=== PATIENT | male | born 1985 | race Caucasian/White ===

== ENCOUNTER 2022-10-21 20:14 | Emergency (ER) | payer OTHER ==
--- NOTE | 2022-10-21 21:31 | RAD REPORT ---
EXAM DESCRIPTION: RAD - Chest Single View - 10/21/2022 9:22 pm CLINICAL HISTORY: PALPITATIONS Chest pain. COMPARISON: No comparisons FINDINGS: Portable technique limits examination quality. The lungs are grossly clear. The heart is normal in size. No displaced fractures. IMPRESSION: No acute intrathoracic process suspected.
--- NOTE | 2022-10-21 21:43 | ER ---
Nurse's Notes [facility] Name: Santiago Cotter Age: 37 yrs Sex: Male : 1985 Arrival Date: 10/21/2022 Time: 20:17 Bed 26 Private MD: Diagnosis: Palpitations Presentation: 10/21 20:30 Chief complaint: Patient states: STATES HE HAS HAD CP FOR 1 YR SO HE WOULD LIKE A CXR j TONIGHT. CURRENTLY NOT HAVING ANY CHEST PAIN. STATES HE CAME TONIGHT BECAUSE HE HAS HAD INTERMITTENT FLUTTERING IN HIS LUQ. Coronavirus screen: Vaccine status: Patient reports receiving the 2nd dose of the covid vaccine. At this time, the client does not indicate any symptoms associated with coronavirus-19. Ebola Screen: No symptoms or risks identified at this time. Initial Sepsis Screen: Does the patient meet any 2 criteria? No. Patient's initial sepsis screen is negative. Does the patient have a suspected source of infection? No. Patient's initial sepsis screen is negative. Risk Assessment: Do you want to hurt yourself or someone else? Patient reports no desire to harm self or others. Onset of symptoms is unknown. 20:30 Method Of Arrival: Ambulatory [facility] 20:30 Acuity: [place] 4 jj7 Triage Assessment: 20:30 General: Appears in no apparent distress. comfortable, slender, Behavior is calm, jj7 cooperative, appropriate for age. Pain: Denies pain. Cardiovascular: No deficits noted. GI: No deficits noted. Historical: - Allergies: 20:40 No Known Allergies; jj7 - PMHx: 20:40 None; jj7 - PSHx: 20:40 None; jj7 - Immunization history:: Client reports receiving the 2nd dose of the Covid vaccine, Flu vaccine is not up to date. - Social history:: Smoking status: Patient denies any tobacco usage or history of. Patient/guardian denies using alcohol, IV drugs, tobacco products. Screenin:41 [facility] ED Fall Risk Assessment (Adult) History of falling in the last 3 months, jj7 including since admission No falls in past 3 months (0 pts) Confusion or Disorientation No (0 pts) Intoxicated or Sedated No (0 pts) Impaired Gait No (0 pts) Mobility Assist Device Used No (0 pt) Altered Elimination No (0 pt) Score/Fall Risk Level 0 - 2 = Low Risk. Abuse screen: Denies threats or abuse. Nutritional screening: No deficits noted. Tuberculosis screening: No symptoms or risk factors identified. Assessment: 20:41 Reassessment: SEE TRIAGE ASSESSMENT. Pain: Denies pain. jj7 21:50 Pain: Pain began. jj7 21:50 Pain: jj7 Vital Signs: 20:30 BP 141 / 87; Pulse 70; Resp 17; Temp 98.1(O); Pulse Ox 100% ; Weight 99.79 kg; Height 6 jj7 ft. 2 in. (187.96 cm); Pain 0/10; 21:48 BP 130 / 87; Pulse 67; Resp 17; Pulse Ox 100% ; Pain 0/10; jj7 20:30 Body Mass Index 28.25 (99.79 kg, 187.96 cm) jj7 ED Course: 20:17 Patient arrived in ED. ja2 20:29 Pawel Grissom PA is PHCP. cp 20:29 Darrion Salazar MD is Attending Physician. cp 20:30 Arm band placed on right wrist. Patient placed in an exam room, on a stretcher. jj7 20:31 Navid Gates RN is Primary Nurse. jj7 20:40 Triage completed. jj7 20:41 Patient has correct armband on for positive identification. Call light in reach. Client jj7 placed on continuous cardiac and pulse oximetry monitoring. NIBP monitoring applied. 20:41 No provider procedures requiring assistance completed. Patient maintains SpO2 jj7 saturation greater than 95% on room air. 21:23 XRAY Chest (1 view) In Process Unspecified. EDMS 21:50 Patient did not have IV access during this emergency room visit. jj7 Administered Medications: No medications were administered Medication: 20:41 VIS not applicable for this client. jj7 Outcome: 21:43 Discharge ordered by . cp 21:49 Discharged to home via ambulance. jj7 21:49 Condition: good 21:49 Discharge instructions given to patient. 21:49 Instructed on discharge instructions, Demonstrated understanding of instructions. 21:50 Patient left the ED. jj7 Signatures: Dispatcher [employer] EDMT Pawel Grissom PA PA cp Alexander, Jessica ja2 Navid Gates RN RN jj7
--- NOTE | 2022-10-21 21:43 | EDPHYS ---
Physician Documentation [facility] Name: Santiago Cotter Age: 37 yrs Sex: Male : 1985 Arrival Date: 10/21/2022 Time: 20:17 Bed 26 Private MD: ED Physician Darrion Salazar HPI: 10/21 21:00 This 37 yrs old Male presents to ER via Ambulatory with complaints of Flank Pain, Chest cp Pain. 21:00 The patient complains of pain in the left lateral abdomen. cp 21:00 The pain radiates to the left side of chest. Onset: The symptoms/episode began/occurred cp 1 year(s) ago, intermittent, felt "fluttering" to left upper abdomen today. Associated signs and symptoms: Pertinent negatives: diarrhea, fever, headache, hematuria, pain radiating to the lower extremities, vomiting. Historical: - Allergies: 20:40 No Known Allergies; jj7 - PMHx: 20:40 None; jj7 - PSHx: 20:40 None; jj7 - Immunization history:: Client reports receiving the 2nd dose of the Covid vaccine, Flu vaccine is not up to date. - Social history:: Smoking status: Patient denies any tobacco usage or history of. Patient/guardian denies using alcohol, IV drugs, tobacco products. ROS: 21:05 Constitutional: Negative for body aches, chills, fever, poor PO intake. cp 21:05 Eyes: Negative for injury, pain, redness, and discharge. cp 21:05 ENT: Negative for drainage from ear(s), ear pain, sore throat, difficulty swallowing, difficulty handling secretions. 21:05 Cardiovascular: Negative for chest pain, edema. 21:05 Respiratory: Negative for cough, shortness of breath, wheezing. 21:05 Abdomen/GI: Positive for of the left upper quadrant, fluttering, Negative for vomiting, diarrhea, constipation. 21:05 Neuro: Negative for altered mental status, dizziness, headache, loss of consciousness, syncope, weakness. 21:05 All other systems are negative. Exam: 21:10 Constitutional: The patient appears in no acute distress, alert, awake, comfortable, cp non-toxic, well developed, well nourished. 21:10 Head/Face: Normocephalic, atraumatic. cp 21:10 Eyes: Periorbital structures: appear normal, Conjunctiva: normal, no exudate, no injection, Sclera: no appreciated abnormality, Lids and lashes: appear normal, bilaterally. 21:10 ENT: External ear(s): are unremarkable, Nose: is normal, Mouth: Lips: moist, Oral mucosa: pink and intact, moist, Posterior pharynx: Airway: no evidence of obstruction, patent. 21:10 Neck: ROM/movement: is normal, is supple, without pain, no range of motions limitations. 21:10 Chest/axilla: Inspection: normal, Palpation: is normal, no crepitus, no tenderness. 21:10 Cardiovascular: Rate: normal, Rhythm: regular, Heart sounds: murmur, not appreciated, Edema: is not appreciated, JVD: is not appreciated. 21:10 Respiratory: the patient does not display signs of respiratory distress, Respirations: normal, no use of accessory muscles, no retractions, labored breathing, is not present, Breath sounds: are clear throughout, no decreased breath sounds, no stridor, no wheezing. 21:10 Abdomen/GI: Inspection: abdomen appears normal, Bowel sounds: active, all quadrants, Palpation: abdomen is soft and non-tender, in all quadrants. 21:10 Back: CVA tenderness, is absent. 21:10 Skin: cellulitis, is not appreciated, no rash present. 21:10 Neuro: Orientation: to person, place \\T\\ time. Mentation: is normal, Motor: moves all fours, strength is normal, Sensation: is normal. 21:30 ECG was reviewed by the Attending Physician. Vital Signs: 20:30 BP 141 / 87; Pulse 70; Resp 17; Temp 98.1(O); Pulse Ox 100% ; Weight 99.79 kg; Height 6 jj7 ft. 2 in. (187.96 cm); Pain 0/10; 21:48 BP 130 / 87; Pulse 67; Resp 17; Pulse Ox 100% ; Pain 0/10; jj7 20:30 Body Mass Index 28.25 (99.79 kg, 187.96 cm) jj7 MDM: 20:32 Patient medically screened. cp 21:00 Differential diagnosis: cardiac arrythmia, pneumonia, pneumothorax. 21:43 Data reviewed: vital signs, nurses notes, EKG, radiologic studies, plain films. cp 21:43 Test interpretation: by ED physician or midlevel provider: ECG, plain radiologic cp studies. Counseling: I had a detailed discussion with the patient and/or guardian regarding: the historical points, exam findings, and any diagnostic results supporting the discharge/admit diagnosis, radiology results, the need for outpatient follow up, a family practitioner, to return to the emergency department if symptoms worsen or persist or if there are any questions or concerns that arise at home. Special discussion: Based on the patient's history, exam, and Dx evaluation, there is no indication for emergent intervention or inpatient Tx. It is understood by the patient/guardian that if the Sx's persist or worsen they need to return immediately for re-evaluation. 10/21 20:40 Order name: XRAY Chest (1 view); Complete Time: 21:34 10/21 21:35 Interpretation: Report review. 10/21 20:40 Order name: EKG; Complete Time: 20:40 cp 10/21 20:40 Order name: EKG - Nurse/Tech cp EC:30 Rate is 68 beats/min. Rhythm is regular. AL interval is normal. QRS interval is normal. cp QT interval is normal. T waves are Inverted in lead aVR. Interpreted by me. Reviewed by me. Administered Medications: No medications were administered Disposition: 10/22 07:13 Co-signature as Attending Physician, Darrion Salazar MD I agree with the assessment and rt plan of care. Disposition Summary: 10/21/22 21:43 Discharge Ordered Location: Home cp Problem: an ongoing problem cp Symptoms: have improved cp Condition: Stable cp Diagnosis - Palpitations cp Followup: cp - With: Private Physician - When: 2 - 3 days - Reason: Worsening of condition Discharge Instructions: - Discharge Summary Sheet cp - Palpitations cp Forms: - Medication Reconciliation Form cp - Thank You Letter cp - Antibiotic Education cp - Prescription Opioid Use cp Signatures: Dispatcher [employer] EDMS Pawel Grissom PA PA cp Johnson, Juwairiyah, RN RN jj7 Darrion Salazar MD MD rt Corrections: (The following items were deleted from the chart) 20:39 10/20 21:00 This 37 yrs old Male presents to ER via Ambulatory with complaints of Flank cp Pain, Chest Pain. cp
[2022-10-21 22:07] VITALS: TEMP 98.1; O2SAT 100
[2022-10-21 22:08] VITALS: BP 130/87
--- NOTE | 2022-10-22 16:04 | EKG ---
Test Date: 2022-10-21 Test Time: 21:23:34 Network Specialist: LUDWIN MEASUREMENT RESULTS: Intervals: Rate: 68 MI: 170 QRSD: 80 QT: 384 QTc: 408 [place]: P: 54 MI: 170 QRS: 51 T: 57 INTERPRETIVE STATEMENTS: Normal sinus rhythm Normal ECG No previous ECG available for comparison Electronically Signed On 10-22-22 16:03:29 QUALITY REVIEWER by Osbaldo Zuleta
== END 2022-10-21 21:50 | disposition home or self-care (01) ==
LOC: ER 20:14
DX: R00.2 Palpitations (principal)
CPT/HCPCS: 71045; 93005; 99284

== ENCOUNTER 2023-04-03 20:37 | Emergency (ER) | payer OTHER ==
--- OUTSIDE RECORDS SUMMARY | 2023-04-03 20:41 | XMS REPORT | Continuity of Care Document ---
:1985 Author Organization [facility] t Address [address] [facility] [place] [address] Care Team Providers Name Role Phone Marzena Malin Primary Care Physician [phone] Problems This patient has no known problems. Allergies, Adverse Reactions, Alerts This patient has no known allergies or adverse reactions. Medications Ordered Filled Start Stop Current Ordering Indication Dosage Frequency Signature Comments Components Source Medication Medication Date Date Medication? Clinician (SIG) Name Name TK No NIRMATRELVI 8-10 R TS AND 1 00:00: RITONAVIR T 00 TOGETHER PO BID FOR 5 DAYS BID FOR 5 DAYS TK 2 No NIRMATRELVI 8-10 R TS AND 1 00:00: RITONAVIR T 00 TOGETHER PO BID FOR 5 DAYS BID FOR 5 DAYS TK 2 No NIRMATRELVI 8-10 R TS AND 1 00:00: RITONAVIR T 00 TOGETHER PO BID FOR 5 DAYS BID FOR 5 DAYS clindamycin No 1mg HCl 300 mg 8-05 capsule 00:00: 00 clindamycin No 1mg HCl 300 mg 8-05 capsule 00:00: 00 clindamycin No 1mg HCl 300 mg 8-05 capsule 00:00: 00 TK 2 No NIRMATRELVI 7-29 R TS AND 1 00:00: RITONAVIR T 00 TOGETHER PO BID FOR 5 DAYS BID FOR 5 DAYS famotidine No 1mg 40 mg 7-29 tablet 00:00: 00 Dose 2021- No Unknown 7-29 00:00: 00 TK 2 No NIRMATRELVI 7-29 R TS AND 1 00:00: RITONAVIR T 00 TOGETHER PO BID FOR 5 DAYS BID FOR 5 DAYS TK 2 2021-0 No NIRMATRELVI 7-29 R TS AND 1 00:00: RITONAVIR T 00 TOGETHER PO BID FOR 5 DAYS BID FOR 5 DAYS famotidine 2021-0 No 1mg 40 mg 7-29 tablet 00:00: 00 Dose 2021-0 No Unknown 7-29 00:00: 00 TK 2 2021-0 No NIRMATRELVI 7-29 R TS AND 1 00:00: RITONAVIR T 00 TOGETHER PO BID FOR 5 DAYS BID FOR 5 DAYS TK 2 2021-0 No NIRMATRELVI 7-29 R TS AND 1 00:00: RITONAVIR T 00 TOGETHER PO BID FOR 5 DAYS BID FOR 5 DAYS famotidine 0 No 1mg 40 mg 7-29 tablet 00:00: 00 Dose 2021-0 No Unknown 7-29 00:00: 00 TK 2 2021-0 No NIRMATRELVI 7-29 R TS AND 1 00:00: RITONAVIR T 00 TOGETHER PO BID FOR 5 DAYS BID FOR 5 DAYS Dose 2021-0 No Unknown 6-25 00:00: 00 Dose 2-0 No Unknown 6-25 00:00: 00 Dose 2-0 No Unknown 6-25 00:00: 00 Dose 2-0 No Unknown 6-25 00:00: 00 Dose 2-0 No Unknown 6-25 00:00: 00 Dose 2-0 No Unknown 6-25 00:00: 00 Dose 2-0 No Unknown 3-29 00:00: 00 Dose 2-0 No Unknown 3-29 00:00: 00 Dose 2-0 No Unknown 3-29 00:00: 00 Dose 2-0 No Unknown 3-29 00:00: 00 Dose 2-0 No Unknown 3-29 00:00: 00 Dose 2-0 No Unknown 3-29 00:00: 00 Dose 2-0 No Unknown 3-29 00:00: 00 Dose 2-0 No Unknown 3-29 00:00: 00 Dose 2-0 No Unknown 3-29 00:00: 00 Dose 2-0 No Unknown 3-29 00:00: 00 Dose 2-0 No Unknown 3-29 00:00: 00 Dose 2-0 No Unknown 3-29 00:00: 00 Dose 2022-0 No Unknown 3-29 00:00: 00 Dose 2022-0 No Unknown 3-29 00:00: 00 Dose 2022-0 No Unknown 3-29 00:00: 00 Dose 2022-0 No Unknown 3-29 00:00: 00 Dose 2022-0 No Unknown 3-29 00:00: 00 Dose 2022-0 No Unknown 3-29 00:00: 00 Dose 2022-0 No Unknown 3-29 00:00: 00 Dose 2022-0 No Unknown 3-29 00:00: 00 Dose 2022-0 No Unknown 3-29 00:00: 00 Dose 2022-0 No Unknown 3-29 00:00: 00 Dose 2022-0 No Unknown 3-29 00:00: 00 Dose 2022-0 No Unknown 3-29 00:00: 00 Dose 2022-0 No Unknown 3-29 00:00: 00 Dose 2022-0 No Unknown 3-29 00:00: 00 Dose 2022-0 No Unknown 3-29 00:00: 00 Dose 2022-0 No Unknown 3-29 00:00: 00 Dose 2022-0 No Unknown 3-29 00:00: 00 Dose 2022-0 No Unknown 3-29 00:00: 00 Dose 2022-0 No Unknown 3-29 00:00: 00 Dose 2022-0 No Unknown 3-29 00:00: 00 Dose 2022-0 No Unknown 3-29 00:00: 00 Dose 2022-0 No Unknown 3-29 00:00: 00 Dose 2022-0 No Unknown 3-29 00:00: 00 Dose 2022-0 No Unknown 3-29 00:00: 00 Dose 2022-0 No Unknown 3-28 00:00: 00 Dose 2022-0 No Unknown 3-28 00:00: 00 Dose 2022-0 No Unknown 3-28 00:00: 00 Dose 2022-0 No Unknown 3-28 00:00: 00 Dose 2022-0 No Unknown 3-28 00:00: 00 Dose 2022-0 No Unknown 3-28 00:00: 00 Dose 2022-0 No Unknown 3- 00:00: 00 Dose 2022-0 No Unknown 3- 00:00: 00 Dose 2022-0 No Unknown 3- 00:00: 00 Dose 2022-0 No Unknown 3-24 00:00: 00 omeprazole 2021-0 No 1mg-gra 40 3-24 m mg-sodium 00:00: bicarbonate 00 1.1 gram capsule omeprazole 2021-0 No 1mg-gra 40 3-24 m mg-sodium 00:00: bicarbonate 00 1.1 gram capsule Vital Signs Vital Name Observation Time Observation Value Comments Source BP Systolic 2022-05-25 10:46:00 126 mm[Hg] BP Diastolic 2022-05-25 10:46:00 74 mm[Hg] Weight Measured 2022-05-25 10:46:00 239.80 pounds Height Measured 2022-05-25 10:46:00 70.00 inches Body Temperature 2022-05-25 10:46:00 98.20 degrees Heart Rate 2022-05-25 10:46:00 84.00 /min Respiratory Rate 2022-05-25 10:46:00 16.00 /min BP Systolic 2022-01-18 17:16:00 138 mm[Hg] BP Diastolic 2022-01-18 17:16:00 80 mm[Hg] Weight Measured 2022-01-18 17:16:00 253.00 pounds Height Measured 2022-01-18 17:16:00 70.00 inches Body Temperature 2022-01-18 17:16:00 100.30 degrees Heart Rate 2022-01-18 17:16:00 74.00 /min Respiratory Rate 2022-01-18 17:16:00 Procedures This patient has no known procedures. Plan of Care Planned Activity Planned Date Details Comments Source Goal Plan of Care Note [code = 79944-8] Goal Plan of Care Note [code = 23519-9] Goal Plan of Care Note [code = 44937-3] Goal Plan of Care Note [code = 56859-8] Goal Plan of Care Note [code = 58618-4] Goal Plan of Care Note [code = 54186-6] Goal Plan of Care Note [code = 68215-5] Goal Plan of Care Note [code = 46367-4] Goal Plan of Care Note [code = 72857-4] Goal Plan of Care Note [code = 34504-9] Goal Plan of Care Note [code = 85764-2] Goal Plan of Care Note [code = 10215-9] Goal Plan of Care Note [code = 55948-8] Goal Plan of Care Note [code = 92280-0] Goal Plan of Care Note [code = 28762-3] Goal Plan of Care Note [code = 76142-5] Goal Plan of Care Note [code = 76142-3] Goal Plan of Care Note [code = 55196-2] Goal Plan of Care Note [code = 24035-3] Goal Plan of Care Note [code = 64752-8] Goal Plan of Care Note [code = 95158-4] Goal Plan of Care Note [code = 22987-5] Goal Plan of Care Note [code = 61182-4] Goal Plan of Care Note [code = 11222-7] Goal Plan of Care Note [code = 44016-9] Encounters Start End Encounter Admission Attending Care Care Encounter Source Date/Time Date/Time Type Type Clinicians Facility Department ID 2023-02-22 2023-02-22 Outpatient SFA SFA [id number] [facility] 10:56:16 10:56:16 [id number] F Chapin 2023-01-04 2023-01-04 Outpatient SFA SFA [facility] 08:05:17 08:05:17 [id number] F Chapin 2022-09-07 2022-09-07 Outpatient SFA SFA [id number] [facility] 09:23:37 09:23:37 [id number] F Chapin 2022-08-22 2022-08-22 Outpatient [id number] 00:00:00 00:00:00 Visit [id number] 2022-08-20 2022-08-20 Outpatient SFA SFA [id number] [facility] 08:44:11 08:44:11 [id number] F Chapin 2022-06-01 2022-06-01 Outpatient [id number] 00:00:00 00:00:00 Visit [id number] [id number] -[id number] 2022-05-25 2022-05-25 Outpatient [id number] 00:00:00 00:00:00 Visit [id number] -[id number]-ib3 [id number] 18bfee Results Test Description Test Time Test Comments Results Result Comments Source VITAMIN D, 25 [place] 2023-01-05 06:14:02 Test Item Value Reference Range Interpretation Comme nts VITAMIN D, 25 OH 19 NG/ML SEE BELOW L EFFECTI VE 11/05/2022, PLEASE NOTE NEW (test code = 4958) METHODOLO GY IS ELECTROCHEMILUMINESCENCE BINDING ASSAY. NOTE: 25-HYDROXYVITAMIN D ASSAY INCLUDES 25-HYDROXYVITAMIN D2 AND D3. INTERPRET [facility] (<17 YEARS) . . . . . . . . . . . NG/ML 20-100ADULT: IN SUFFICIENT . . . . . . . . . . . . . . NG/ML <20 SUBOPTIMAL . . . . . . . . . . . . . . . NG/ML 20-29 OPTIMAL . . . . . . . . . . . . . . . . . NG/ML 30-100 [facility] has importa nt pathology staff changes effective 12/26. New pathology staff will prov mary uninterrupted, excellent patient care an d clinical consultation. See URL: [email or web address] UNLESS OTHERWISE INDIC ATED, ALL TESTING PERFORMED AT [facility] [employer] [address] [place] [id number] ULTRA SOUND TECHNICIAN: NANCY LADD M.D. CLIA NUMBER [id number] [facility] [place]. [id number] CBC W/AUTO DIFF WITH [id number] 03:25:56 Test Item Value Reference Range Interpretation Comments WBC (test code = 4.6 K/UL 3.5-11.0 1001) RBC (test code = 4.66 M/UL 4.50-6.10 1002) HEMOGLOBIN (test code 14.4 G/DL 13.5-17.0 = 1003) HEMATOCRIT (test code 43.6 % 40.0-51.0 = 1004) MCV (test code = 93.6 fL 80.0-99.0 1005) MCH (test code = 30.9 PG 25.0-33.0 1006) MCHC (test code = 33.0 G/DL 31.0-36.0 1007) RDW (test code = 11.9 % 11.5-15.0 1038) NEUTROPHILS (test 57.7 % code = 1008) LYMPHOCYTES (test 31.7 % code = 1010) MONOCYTES (test code 7.1 % = 1011) EOSINOPHILS (test 2.6 % code = 1012) BASOPHILS (test code 0.9 % = 1013) IMMATURE GRANULOCYTES 0.0 % (test code = 1036) NUCLEATED RBCS (test 0.0 /100 WBC'S See_Comment [Aut omated code = 1065) message] The sy stem which generated this result transmitted reference range : 0.0. The refere nce range was not u sed to interpret th is result as normal/abnormal . PLATELET COUNT (test 190 K/UL 130-400 code = 1015) ABSOLUTE NEUTROPHILS 2.67 K/UL 1.50-7.50 (test code = 1066) ABSOLUTE LYMPHOCYTES 1.47 K/UL 1.00-4.00 (test code = 1067) ABSOLUTE MONOCYTES 0.33 K/UL 0.20-1.00 (test code = 1068) ABSOLUTE EOSINOPHILS 0.12 K/UL 0.00-0.50 (test code = 1040) ABSOLUTE BASOPHILS 0.04 K/UL 0.00-0.20 (test code = 1069) ABS IMMATURE 0.00 K/UL 0.00-0.10 GRANULOCYTES (test code = 1020) ABS NUCLEATED RBCS 0.00 K/UL 0.00-0.11 (test code = 50381) COMPREHENSIVE METABOLIC [id number] 06:47:11 Test Item Value Reference Range Interpretation Comments GLUCOSE (test code = 97 MG/DL 70-99 2216) BUN (test code = 12 MG/DL -2207) CREATININE (test 0.93 MG/DL 0.80-1.40 code = 2214) eGFR (2020 CKD-EPI) 110 >60 (test code = 54839) ML/MIN/1.73 CALC BUN/CREAT (test 13 RATIO - code = 2235) SODIUM (test code = 144 MEQ/L 973-103 3176) POTASSIUM (test code 4.5 MEQ/L 3.5-5.4 = 2228) CHLORIDE (test code 105 MEQ/L 95-107 = 2215) CARBON DIOXIDE (test 27 MEQ/L 19-31 code = 220) CALCIUM (test code = 9.7 MG/DL 8.5-10.5 2208) PROTEIN, TOTAL (test 7.1 G/DL 6.1-8.3 code = 2229) ALBUMIN (test code = 4.9 G/DL 3.5-5.2 2200) CALC GLOBULIN (test 2.2 G/DL 1.9-3.7 code = 2240) CALC A/G RATIO (test 2.2 RATIO 1.0-2.6 code = 2234) BILIRUBIN, TOTAL 0.6 MG/DL See_Comment [Automated message] (test code = 220) The syste m which generated this result transmitted ref erence range: <=1.2. T he reference range was not used to int erpret this result as normal/abnormal . ALKALINE PHOSPHATASE 96 U/L 40-112 (test code = 2203) AST (test code = 21 U/L 9-50 2217) ALT (test code = 31 U/L 5-50 UNLESS OTH ERWISE 2218) INDICATED, ALL TESTING PERFORM [facility], [facility]. [address] [place] [id number] [place] [address] DIRECTOR: HILTON OROZCO M.D. CLIA NUMBER [id number] [place] O. [id number] COMPREHENSIVE METABOLIC [id number] 00:00:00 Test Item Value Reference Range Interpretation Comments GLUCOSE (test code = 2217) 97 MG/DL BUN (test code = 2208) 12 MG/DL CREATININE (test code = 2214) 0.93 MG/DL eGFR (2020 CKD-EPI) (test 110 ML/MIN/1.73 code = 21773) CALC BUN/CREAT (test code = 13 RATIO 2234) SODIUM (test code = 2231) 144 MEQ/L POTASSIUM (test code = 2228) 4.5 MEQ/L CHLORIDE (test code = 2215) 105 MEQ/L CARBON DIOXIDE (test code = 27 MEQ/L 2205) CALCIUM (test code = 2209) 9.7 MG/DL PROTEIN, TOTAL (test code = 7.1 G/DL 2228) ALBUMIN (test code = 2201) 4.9 G/DL CALC GLOBULIN (test code = 2.2 G/DL 2240) CALC A/G RATIO (test code = 2.2 RATIO 2234) BILIRUBIN, TOTAL (test code = 0.6 MG/DL 2206) ALKALINE PHOSPHATASE (test 96 U/L code = 2204) AST (test code = 2218) 21 U/L ALT (test code = 2219) 31 U/L COMPREHENSIVE METABOLIC [id number] 00:00:00 Test Item Value Reference Range Interpretation Comments GLUCOSE (test code = 2217) 97 MG/DL BUN (test code = 2208) 12 MG/DL CREATININE (test code = 2214) 0.93 MG/DL eGFR (2020 CKD-EPI) (test 110 ML/MIN/1.73 code = 39981) CALC BUN/CREAT (test code = 13 RATIO 2235) SODIUM (test code = 2231) 144 MEQ/L POTASSIUM (test code = 2228) 4.5 MEQ/L CHLORIDE (test code = 2215) 105 MEQ/L CARBON DIOXIDE (test code = 27 MEQ/L 2205) CALCIUM (test code = 2209) 9.7 MG/DL PROTEIN, TOTAL (test code = 7.1 G/DL 2228) ALBUMIN (test code = 2201) 4.9 G/DL CALC GLOBULIN (test code = 2.2 G/DL 2240) CALC A/G RATIO (test code = 2.2 RATIO 2234) BILIRUBIN, TOTAL (test code = 0.6 MG/DL 2206) ALKALINE PHOSPHATASE (test 96 U/L code = 2204) AST (test code = 2218) 21 U/L ALT (test code = 2219) 31 U/L TROPONIN [id number] 08:47:29 Test Item Value Reference Range Interpretation Comments TROPONIN T (test <6 NG/L <22 INTERPRETI VE code = 4017) INFORMATION:MET HODOLOGY IS 5TH GENERATION HIGH SENSITIVITY CAR DIAC TROPONIN.REFERE NCE INTERVALS GIVEN ABOVE ARE BELOW THE 99TH PERCENTILE OFAPPARENTLY HEALTHY ADULT P ATIENTS. ELEVATIONS OF C ARDIAC TROPONIN TMAY B E SEEN IN PATIENTS WITH M YOCARDIAL INJURY, SEEN IN STABLE ORUNSTABLE KENA NA, HEART FAILURE, MYOCAR DITIS, PULMONARY EMBOLISM,PERICA RDITIS, ARRHYTHMIAS, CA RDIAC CONTUSIONS, AND CARDIAC TRANSPLANTSELEV ATIONS ARE ALSO NOTABLE IN PATIENTS WITH RHABDOMYOLYSIS ANDPOLYMYOSITIS . FOR MORE INFORMATION, SE Velez CLIENT ANNOUNCEMENT AT [email or web address] SS OTHERWISE INDICATED, ALL TESTING PERFORMED [facility] PATHOLOGY [facility]. [address] [place] [id number] LABORATORY DIRE CTOR: HILTON OROZCO M.D. CLIA NUMBER [id number] [facility] [place]. [id number] 06:05:25 Test Item Value Reference Range Interpretation Comments CKMB (test code = <1.0 NG/ML See_Comment [Automate d message] The ) system which ge nerated this result tra nsmitted reference range : <=7.7. The reference r aracely was not used to int erpret this result as normal/abnormal . COMPREHENSIVE METABOLIC [id number] 04:29:27 Test Item Value Reference Range Interpretation Comments GLUCOSE (test code = 109 MG/DL 70-99 H 2216) BUN (test code = 9 MG/DL 6-20 2207) CREATININE (test 0.99 MG/DL 0.80-1.40 code = 2214) eGFR (2020 CKD-EPI) 103 >60 (test code = 43628) ML/MIN/1.73 CALC BUN/CREAT (test 9 RATIO 6-28 code = 2235) SODIUM (test code = 142 MEQ/L 094-034 5535) POTASSIUM (test code 4.4 MEQ/L 3.5-5.4 = 2227) CHLORIDE (test code 101 MEQ/L 95-107 = 2215) CARBON DIOXIDE (test 26 MEQ/L 19-31 code = 2206) CALCIUM (test code = 10.7 MG/DL 8.5-10.5 H 2208) PROTEIN, TOTAL (test 7.6 G/DL 6.1-8.3 code = 2229) ALBUMIN (test code = 5.2 G/DL 3.5-5.2 2200) CALC GLOBULIN (test 2.4 G/DL 1.9-3.7 code = 2240) CALC A/G RATIO (test 2.2 RATIO 1.0-2.6 code = 2234) BILIRUBIN, TOTAL 0.5 MG/DL See_Comment [Automated message] (test code = 220) The syste m which generated this result transmit tita reference range : <=1.2. The refe rence range was not u sed to interpret th is result as normal/abnormal . ALKALINE PHOSPHATASE 118 U/L 40-112 H (test code = 2203) AST (test code = 31 U/L 9-50 2217) ALT (test code = 61 U/L 5-50 H 2218) LIPID [id number] 04:29:27 Test Item Value Reference Range Interpretation Comments CHOLESTEROL (test 197 MG/DL <200 code = 2210) TRIGLYCERIDES (test 211 MG/DL <150 H code = 2232) HDL CHOLESTEROL (test 30 MG/DL >39 L code = 2220) CALC LDL CHOL (test 132 MG/DL <100 H NOTE: C ALCULATED LDL code = 2237) IS BASED ON MAGGIE-BUCKLEY METHOD WHICHINCLUDES ADJUSTABLE TRIGLYCERIDE:VL DL CHOLESTEROL RAT IO.THIS FACTOR VARIES B Y MEASURED TRIGLY CERIDE AND NON-HDLCHOL ESTEROL CONCENTRATIONS WITH INCREASED CALCU LATED LDL SEENIN HIGH ER TRIGLYCERIDE OR LOWER NON-HDL SPECIME NS. FOR MOREINFORMATION , SEE CLIENT ANNOUNCE MENT AT [email or web address] RATIO LDL/HDL 4.40 RATIO <3.55 H (test code = 2237) CBC W/AUTO DIFF WITH [id number] 02:11:34 Test Item Value Reference Range Interpretation Comments WBC (test code = 8.0 K/UL 3.5-11.0 1001) RBC (test code = 5.08 M/UL 4.50-6.10 1002) HEMOGLOBIN (test code 15.7 G/DL 13.5-17.0 = 1003) HEMATOCRIT (test code 44.8 % 40.0-51.0 = 1004) MCV (test code = 88.2 fL 80.0-99.0 1005) MCH (test code = 30.9 PG 25.0-33.0 1006) MCHC (test code = 35.0 G/DL 31.0-36.0 1007) RDW (test code = 11.7 % 11.5-15.0 1038) NEUTROPHILS (test 69.0 % code = 1008) LYMPHOCYTES (test 21.6 % code = 1010) MONOCYTES (test code 6.0 % = 1011) EOSINOPHILS (test 2.5 % code = 1012) BASOPHILS (test code 0.6 % = 1013) IMMATURE GRANULOCYTES 0.3 % (test code = 1036) NUCLEATED RBCS (test 0.0 /100 WBC'S See_Comment [Aut omated code = 1065) message] The sy stem which generated this result transmitted reference range : 0.0. The refere nce range was not u sed to interpret th is result as normal/abnormal . PLATELET COUNT (test 245 K/UL 130-400 code = 1015) ABSOLUTE NEUTROPHILS 5.50 K/UL 1.50-7.50 (test code = 1066) ABSOLUTE LYMPHOCYTES 1.72 K/UL 1.00-4.00 (test code = 1067) ABSOLUTE MONOCYTES 0.48 K/UL 0.20-1.00 (test code = 1068) ABSOLUTE EOSINOPHILS 0.20 K/UL 0.00-0.50 (test code = 1040) ABSOLUTE BASOPHILS 0.05 K/UL 0.00-0.20 (test code = 1069) ABS IMMATURE 0.02 K/UL 0.00-0.10 GRANULOCYTES (test code = 1020) ABS NUCLEATED RBCS 0.00 K/UL 0.00-0.11 (test code = 63086) CBC W/AUTO DIFF WITH PLATELETS [ADDED]2022-05-26 00:00:00 Test Item Value Reference Range Interpretation Comments WBC (test code = 1001) 8.0 K/UL RBC (test code = 1002) 5.08 M/UL HEMOGLOBIN (test code = 1003) 15.7 G/DL HEMATOCRIT (test code = 1004) 44.8 % MCV (test code = 1005) 88.2 fL MCH (test code = 1006) 30.9 PG MCHC (test code = 1007) 35.0 G/DL RDW (test code = 1038) 11.7 % NEUTROPHILS (test code = 1008) 69.0 % LYMPHOCYTES (test code = 1010) 21.6 % MONOCYTES (test code = 1011) 6.0 % EOSINOPHILS (test code = 1012) 2.5 % BASOPHILS (test code = 1013) 0.6 % IMMATURE GRANULOCYTES (test 0.3 % code = 1036) NUCLEATED RBCS (test code = 0.0 /100WBC'S 1065) PLATELET COUNT (test code = 245 K/UL 1015) ABSOLUTE NEUTROPHILS (test code 5.50 K/UL = 1066) ABSOLUTE LYMPHOCYTES (test code 1.72 K/UL = 1067) ABSOLUTE MONOCYTES (test code = 0.48 K/UL 1068) ABSOLUTE EOSINOPHILS (test code 0.20 K/UL = 1040) ABSOLUTE BASOPHILS (test code = 0.05 K/UL 1069) ABS IMMATURE GRANULOCYTES (test 0.02 K/UL code = 1020) ABS NUCLEATED RBCS (test code = 0.00 K/UL 11600) CBC W/AUTO DIFF WITH PLATELETS [ADDED]2022-05-26 00:00:00 Test Item Value Reference Range Interpretation Comments WBC (test code = 1001) 8.0 K/UL RBC (test code = 1002) 5.08 M/UL HEMOGLOBIN (test code = 1003) 15.7 G/DL HEMATOCRIT (test code = 1004) 44.8 % MCV (test code = 1005) 88.2 fL MCH (test code = 1006) 30.9 PG MCHC (test code = 1007) 35.0 G/DL RDW (test code = 1038) 11.7 % NEUTROPHILS (test code = 1008) 69.0 % LYMPHOCYTES (test code = 1010) 21.6 % MONOCYTES (test code = 1011) 6.0 % EOSINOPHILS (test code = 1012) 2.5 % BASOPHILS (test code = 1013) 0.6 % IMMATURE GRANULOCYTES (test 0.3 % code = 1036) NUCLEATED RBCS (test code = 0.0 /100WBC'S 1065) PLATELET COUNT (test code = 245 K/UL 1015) ABSOLUTE NEUTROPHILS (test code 5.50 K/UL = 1066) ABSOLUTE LYMPHOCYTES (test code 1.72 K/UL = 1067) ABSOLUTE MONOCYTES (test code = 0.48 K/UL 1068) ABSOLUTE EOSINOPHILS (test code 0.20 K/UL = 1040) ABSOLUTE BASOPHILS (test code = 0.05 K/UL 1069) ABS IMMATURE GRANULOCYTES (test 0.02 K/UL code = 1020) ABS NUCLEATED RBCS (test code = 0.00 K/UL 33593) CBC W/AUTO DIFF WITH PLATELETS [ADDED]2022-05-26 00:00:00 Test Item Value Reference Range Interpretation Comments WBC (test code = 1001) 8.0 K/UL RBC (test code = 1002) 5.08 M/UL HEMOGLOBIN (test code = 1003) 15.7 G/DL HEMATOCRIT (test code = 1004) 44.8 % MCV (test code = 1005) 88.2 fL MCH (test code = 1006) 30.9 PG MCHC (test code = 1007) 35.0 G/DL RDW (test code = 1038) 11.7 % NEUTROPHILS (test code = 1008) 69.0 % LYMPHOCYTES (test code = 1010) 21.6 % MONOCYTES (test code = 1011) 6.0 % EOSINOPHILS (test code = 1012) 2.5 % BASOPHILS (test code = 1013) 0.6 % IMMATURE GRANULOCYTES (test 0.3 % code = 1036) NUCLEATED RBCS (test code = 0.0 /100WBC'S 1065) PLATELET COUNT (test code = 245 K/UL 1015) ABSOLUTE NEUTROPHILS (test code 5.50 K/UL = 1066) ABSOLUTE LYMPHOCYTES (test code 1.72 K/UL = 1067) ABSOLUTE MONOCYTES (test code = 0.48 K/UL 1068) ABSOLUTE EOSINOPHILS (test code 0.20 K/UL = 1040) ABSOLUTE BASOPHILS (test code = 0.05 K/UL 1069) ABS IMMATURE GRANULOCYTES (test 0.02 K/UL code = 1020) ABS NUCLEATED RBCS (test code = 0.00 K/UL 51567) COMPREHENSIVE METABOLIC PANEL [ADDED]2022-05-26 00:00:00 Test Item Value Reference Range Interpretation Comments GLUCOSE (test code = 2217) 109 MG/DL BUN (test code = 2208) 9 MG/DL CREATININE (test code = 2214) 0.99 MG/DL eGFR (2020 CKD-EPI) (test 103 ML/MIN/1.73 code = 70561) CALC BUN/CREAT (test code = 9 RATIO 2235) SODIUM (test code = 2231) 142 MEQ/L POTASSIUM (test code = 2228) 4.4 MEQ/L CHLORIDE (test code = 2215) 101 MEQ/L CARBON DIOXIDE (test code = 26 MEQ/L 2205) CALCIUM (test code = 2209) 10.7 MG/DL PROTEIN, TOTAL (test code = 7.6 G/DL 2228) ALBUMIN (test code = 2201) 5.2 G/DL CALC GLOBULIN (test code = 2.4 G/DL 2240) CALC A/G RATIO (test code = 2.2 RATIO 2234) BILIRUBIN, TOTAL (test code = 0.5 MG/DL 2206) ALKALINE PHOSPHATASE (test 118 U/L code = 2204) AST (test code = 2218) 31 U/L ALT (test code = 2219) 61 U/L COMPREHENSIVE METABOLIC PANEL [ADDED]2022-05-26 00:00:00 Test Item Value Reference Range Interpretation Comments GLUCOSE (test code = 2217) 109 MG/DL BUN (test code = 2208) 9 MG/DL CREATININE (test code = 2214) 0.99 MG/DL eGFR (2020 CKD-EPI) (test 103 ML/MIN/1.73 code = 49728) CALC BUN/CREAT (test code = 9 RATIO 2235) SODIUM (test code = 2231) 142 MEQ/L POTASSIUM (test code = 2228) 4.4 MEQ/L CHLORIDE (test code = 2215) 101 MEQ/L CARBON DIOXIDE (test code = 26 MEQ/L 2206) CALCIUM (test code = 2209) 10.7 MG/DL PROTEIN, TOTAL (test code = 7.6 G/DL 2228) ALBUMIN (test code = 2201) 5.2 G/DL CALC GLOBULIN (test code = 2.4 G/DL 2240) CALC A/G RATIO (test code = 2.2 RATIO 2234) BILIRUBIN, TOTAL (test code = 0.5 MG/DL 2206) ALKALINE PHOSPHATASE (test 118 U/L code = 2204) AST (test code = 2218) 31 U/L ALT (test code = 2219) 61 U/L LIPID PANEL [ADDED]2022-05-26 00:00:00 Test Item Value Reference Range Interpretation Comments CHOLESTEROL (test code = 2210) 197 MG/DL TRIGLYCERIDES (test code = 2232) 211 MG/DL HDL CHOLESTEROL (test code = 2220) 30 MG/DL CALC LDL CHOL (test code = 2237) 132 MG/DL RISK RATIO LDL/HDL (test code = 4.40 RATIO 2238) LIPID PANEL [ADDED]2022-05-26 00:00:00 Test Item Value Reference Range Interpretation Comments CHOLESTEROL (test code = 2210) 197 MG/DL TRIGLYCERIDES (test code = 2232) 211 MG/DL HDL CHOLESTEROL (test code = 2220) 30 MG/DL CALC LDL CHOL (test code = 2237) 132 MG/DL RISK RATIO LDL/HDL (test code = 4.40 RATIO 2238) CKMB [ADDED]2022-05-26 00:00:00 Test Item Value Reference Range Interpretation Comments CKMB (test code = 33712) <1.0 NG/ML CKMB [ADDED]2022-05-26 00:00:00 Test Item Value Reference Range Interpretation Comments CKMB (test code = ) <1.0 NG/ML TROPONIN T [ADDED]2022-05-26 00:00:00 Test Item Value Reference Range Interpretation Comments TROPONIN T (test code = 4017) <6 NG/L TROPONIN T [ADDED]2022-05-26 00:00:00 Test Item Value Reference Range Interpretation Comments TROPONIN T (test code = 4017) <6 NG/L CBC W/AUTO DIFF WITH PLATELETS [ADDED]2022-05-26 00:00:00 Test Item Value Reference Range Interpretation Comments WBC (test code = 1001) 8.0 K/UL RBC (test code = 1002) 5.08 M/UL HEMOGLOBIN (test code = 1003) 15.7 G/DL HEMATOCRIT (test code = 1004) 44.8 % MCV (test code = 1005) 88.2 fL MCH (test code = 1006) 30.9 PG MCHC (test code = 1007) 35.0 G/DL RDW (test code = 1038) 11.7 % NEUTROPHILS (test code = 1008) 69.0 % LYMPHOCYTES (test code = 1010) 21.6 % MONOCYTES (test code = 1011) 6.0 % EOSINOPHILS (test code = 1012) 2.5 % BASOPHILS (test code = 1013) 0.6 % IMMATURE GRANULOCYTES (test 0.3 % code = 1036) NUCLEATED RBCS (test code = 0.0 /100WBC'S 1065) PLATELET COUNT (test code = 245 K/UL 1015) ABSOLUTE NEUTROPHILS (test code 5.50 K/UL = 1066) ABSOLUTE LYMPHOCYTES (test code 1.72 K/UL = 1067) ABSOLUTE MONOCYTES (test code = 0.48 K/UL 1068) ABSOLUTE EOSINOPHILS (test code 0.20 K/UL = 1040) ABSOLUTE BASOPHILS (test code = 0.05 K/UL 1069) ABS IMMATURE GRANULOCYTES (test 0.02 K/UL code = 1020) ABS NUCLEATED RBCS (test code = 0.00 K/UL 02034) CBC W/AUTO DIFF WITH PLATELETS [ADDED]2022-05-26 00:00:00 Test Item Value Reference Range Interpretation Comments WBC (test code = 1001) 8.0 K/UL RBC (test code = 1002) 5.08 M/UL HEMOGLOBIN (test code = 1003) 15.7 G/DL HEMATOCRIT (test code = 1004) 44.8 % MCV (test code = 1005) 88.2 fL MCH (test code = 1006) 30.9 PG MCHC (test code = 1007) 35.0 G/DL RDW (test code = 1038) 11.7 % NEUTROPHILS (test code = 1008) 69.0 % LYMPHOCYTES (test code = 1010) 21.6 % MONOCYTES (test code = 1011) 6.0 % EOSINOPHILS (test code = 1012) 2.5 % BASOPHILS (test code = 1013) 0.6 % IMMATURE GRANULOCYTES (test 0.3 % code = 1036) NUCLEATED RBCS (test code = 0.0 /100WBC'S 1065) PLATELET COUNT (test code = 245 K/UL 1015) ABSOLUTE NEUTROPHILS (test code 5.50 K/UL = 1066) ABSOLUTE LYMPHOCYTES (test code 1.72 K/UL = 1067) ABSOLUTE MONOCYTES (test code = 0.48 K/UL 1068) ABSOLUTE EOSINOPHILS (test code 0.20 K/UL = 1040) ABSOLUTE BASOPHILS (test code = 0.05 K/UL 1069) ABS IMMATURE GRANULOCYTES (test 0.02 K/UL code = 1020) ABS NUCLEATED RBCS (test code = 0.00 K/UL 75446) CBC W/AUTO DIFF WITH PLATELETS [ADDED]2022-05-26 00:00:00 Test Item Value Reference Range Interpretation Comments WBC (test code = 1001) 8.0 K/UL RBC (test code = 1002) 5.08 M/UL HEMOGLOBIN (test code = 1003) 15.7 G/DL HEMATOCRIT (test code = 1004) 44.8 % MCV (test code = 1005) 88.2 fL MCH (test code = 1006) 30.9 PG MCHC (test code = 1007) 35.0 G/DL RDW (test code = 1038) 11.7 % NEUTROPHILS (test code = 1008) 69.0 % LYMPHOCYTES (test code = 1010) 21.6 % MONOCYTES (test code = 1011) 6.0 % EOSINOPHILS (test code = 1012) 2.5 % BASOPHILS (test code = 1013) 0.6 % IMMATURE GRANULOCYTES (test 0.3 % code = 1036) NUCLEATED RBCS (test code = 0.0 /100WBC'S 1065) PLATELET COUNT (test code = 245 K/UL 1015) ABSOLUTE NEUTROPHILS (test code 5.50 K/UL = 1066) ABSOLUTE LYMPHOCYTES (test code 1.72 K/UL = 1067) ABSOLUTE MONOCYTES (test code = 0.48 K/UL 1068) ABSOLUTE EOSINOPHILS (test code 0.20 K/UL = 1040) ABSOLUTE BASOPHILS (test code = 0.05 K/UL 1069) ABS IMMATURE GRANULOCYTES (test 0.02 K/UL code = 1020) ABS NUCLEATED RBCS (test code = 0.00 K/UL 90258) COMPREHENSIVE METABOLIC PANEL [ADDED]2022-05-26 00:00:00 Test Item Value Reference Range Interpretation Comments GLUCOSE (test code = 2217) 109 MG/DL BUN (test code = 2208) 9 MG/DL CREATININE (test code = 2214) 0.99 MG/DL eGFR (2020 CKD-EPI) (test 103 ML/MIN/1.73 code = 19521) CALC BUN/CREAT (test code = 9 RATIO 2235) SODIUM (test code = 2231) 142 MEQ/L POTASSIUM (test code = 2228) 4.4 MEQ/L CHLORIDE (test code = 2215) 101 MEQ/L CARBON DIOXIDE (test code = 26 MEQ/L 2205) CALCIUM (test code = 2209) 10.7 MG/DL PROTEIN, TOTAL (test code = 7.6 G/DL 2228) ALBUMIN (test code = 2201) 5.2 G/DL CALC GLOBULIN (test code = 2.4 G/DL 2239) CALC A/G RATIO (test code = 2.2 RATIO 2234) BILIRUBIN, TOTAL (test code = 0.5 MG/DL 2206) ALKALINE PHOSPHATASE (test 118 U/L code = 2204) AST (test code = 2218) 31 U/L ALT (test code = 2219) 61 U/L COMPREHENSIVE METABOLIC PANEL [ADDED]2022-05-26 00:00:00 Test Item Value Reference Range Interpretation Comments GLUCOSE (test code = 2217) 109 MG/DL BUN (test code = 2208) 9 MG/DL CREATININE (test code = 2214) 0.99 MG/DL eGFR (2020 CKD-EPI) (test 103 ML/MIN/1.73 code = 26621) CALC BUN/CREAT (test code = 9 RATIO 2235) SODIUM (test code = 2231) 142 MEQ/L POTASSIUM (test code = 2228) 4.4 MEQ/L CHLORIDE (test code = 2215) 101 MEQ/L CARBON DIOXIDE (test code = 26 MEQ/L 2205) CALCIUM (test code = 2209) 10.7 MG/DL PROTEIN, TOTAL (test code = 7.6 G/DL 2228) ALBUMIN (test code = 2201) 5.2 G/DL CALC GLOBULIN (test code = 2.4 G/DL 2239) CALC A/G RATIO (test code = 2.2 RATIO 4) BILIRUBIN, TOTAL (test code = 0.5 MG/DL 2206) ALKALINE PHOSPHATASE (test 118 U/L code = 2204) AST (test code = 2218) 31 U/L ALT (test code = 2219) 61 U/L LIPID PANEL [ADDED]2022-05-26 00:00:00 Test Item Value Reference Range Interpretation Comments CHOLESTEROL (test code = 2210) 197 MG/DL TRIGLYCERIDES (test code = 2232) 211 MG/DL HDL CHOLESTEROL (test code = 2220) 30 MG/DL CALC LDL CHOL (test code = 2237) 132 MG/DL RISK RATIO LDL/HDL (test code = 4.40 RATIO 2238) LIPID PANEL [ADDED]2022-05-26 00:00:00 Test Item Value Reference Range Interpretation Comments CHOLESTEROL (test code = 2210) 197 MG/DL TRIGLYCERIDES (test code = 2232) 211 MG/DL HDL CHOLESTEROL (test code = 2220) 30 MG/DL CALC LDL CHOL (test code = 2237) 132 MG/DL RISK RATIO LDL/HDL (test code = 4.40 RATIO 2238) CKMB [ADDED]2022-05-26 00:00:00 Test Item Value Reference Range Interpretation Comments CKMB (test code = 45684) <1.0 NG/ML CKMB [ADDED]2022-05-26 00:00:00 Test Item Value Reference Range Interpretation Comments CKMB (test code = 12032) <1.0 NG/ML TROPONIN T [ADDED]2022-05-26 00:00:00 Test Item Value Reference Range Interpretation Comments TROPONIN T (test code = 4017) <6 NG/L TROPONIN T [ADDED]2022-05-26 00:00:00 Test Item Value Reference Range Interpretation Comments TROPONIN T (test code = 4017) <6 NG/L CBC W/AUTO DIFF WITH PLATELETS [ADDED]2022-05-26 00:00:00 Test Item Value Reference Range Interpretation Comments WBC (test code = 1001) 8.0 K/UL RBC (test code = 1002) 5.08 M/UL HEMOGLOBIN (test code = 1003) 15.7 G/DL HEMATOCRIT (test code = 1004) 44.8 % MCV (test code = 1005) 88.2 fL MCH (test code = 1006) 30.9 PG MCHC (test code = 1007) 35.0 G/DL RDW (test code = 1038) 11.7 % NEUTROPHILS (test code = 1008) 69.0 % LYMPHOCYTES (test code = 1010) 21.6 % MONOCYTES (test code = 1011) 6.0 % EOSINOPHILS (test code = 1012) 2.5 % BASOPHILS (test code = 1013) 0.6 % IMMATURE GRANULOCYTES (test 0.3 % code = 1036) NUCLEATED RBCS (test code = 0.0 /100WBC'S 1065) PLATELET COUNT (test code = 245 K/UL 1015) ABSOLUTE NEUTROPHILS (test code 5.50 K/UL = 1066) ABSOLUTE LYMPHOCYTES (test code 1.72 K/UL = 1067) ABSOLUTE MONOCYTES (test code = 0.48 K/UL 1068) ABSOLUTE EOSINOPHILS (test code 0.20 K/UL = 1040) ABSOLUTE BASOPHILS (test code = 0.05 K/UL 1069) ABS IMMATURE GRANULOCYTES (test 0.02 K/UL code = 1020) ABS NUCLEATED RBCS (test code = 0.00 K/UL 16375) CBC W/AUTO DIFF WITH PLATELETS [ADDED]2022-05-26 00:00:00 Test Item Value Reference Range Interpretation Comments WBC (test code = 1001) 8.0 K/UL RBC (test code = 1002) 5.08 M/UL HEMOGLOBIN (test code = 1003) 15.7 G/DL HEMATOCRIT (test code = 1004) 44.8 % MCV (test code = 1005) 88.2 fL MCH (test code = 1006) 30.9 PG MCHC (test code = 1007) 35.0 G/DL RDW (test code = 1038) 11.7 % NEUTROPHILS (test code = 1008) 69.0 % LYMPHOCYTES (test code = 1010) 21.6 % MONOCYTES (test code = 1011) 6.0 % EOSINOPHILS (test code = 1012) 2.5 % BASOPHILS (test code = 1013) 0.6 % IMMATURE GRANULOCYTES (test 0.3 % code = 1036) NUCLEATED RBCS (test code = 0.0 /100WBC'S 1065) PLATELET COUNT (test code = 245 K/UL 1015) ABSOLUTE NEUTROPHILS (test code 5.50 K/UL = 1066) ABSOLUTE LYMPHOCYTES (test code 1.72 K/UL = 1067) ABSOLUTE MONOCYTES (test code = 0.48 K/UL 1068) ABSOLUTE EOSINOPHILS (test code 0.20 K/UL = 1040) ABSOLUTE BASOPHILS (test code = 0.05 K/UL 1069) ABS IMMATURE GRANULOCYTES (test 0.02 K/UL code = 1020) ABS NUCLEATED RBCS (test code = 0.00 K/UL 84954) CBC W/AUTO DIFF WITH PLATELETS [ADDED]2022-05-26 00:00:00 Test Item Value Reference Range Interpretation Comments WBC (test code = 1001) 8.0 K/UL RBC (test code = 1002) 5.08 M/UL HEMOGLOBIN (test code = 1003) 15.7 G/DL HEMATOCRIT (test code = 1004) 44.8 % MCV (test code = 1005) 88.2 fL MCH (test code = 1006) 30.9 PG MCHC (test code = 1007) 35.0 G/DL RDW (test code = 1038) 11.7 % NEUTROPHILS (test code = 1008) 69.0 % LYMPHOCYTES (test code = 1010) 21.6 % MONOCYTES (test code = 1011) 6.0 % EOSINOPHILS (test code = 1012) 2.5 % BASOPHILS (test code = 1013) 0.6 % IMMATURE GRANULOCYTES (test 0.3 % code = 1036) NUCLEATED RBCS (test code = 0.0 /100WBC'S 1065) PLATELET COUNT (test code = 245 K/UL 1015) ABSOLUTE NEUTROPHILS (test code 5.50 K/UL = 1066) ABSOLUTE LYMPHOCYTES (test code 1.72 K/UL = 1067) ABSOLUTE MONOCYTES (test code = 0.48 K/UL 1068) ABSOLUTE EOSINOPHILS (test code 0.20 K/UL = 1040) ABSOLUTE BASOPHILS (test code = 0.05 K/UL 1069) ABS IMMATURE GRANULOCYTES (test 0.02 K/UL code = 1020) ABS NUCLEATED RBCS (test code = 0.00 K/UL 38688) COMPREHENSIVE METABOLIC PANEL [ADDED]2022-05-26 00:00:00 Test Item Value Reference Range Interpretation Comments GLUCOSE (test code = 2217) 109 MG/DL BUN (test code = 2208) 9 MG/DL CREATININE (test code = 2214) 0.99 MG/DL eGFR (2020 CKD-EPI) (test 103 ML/MIN/1.73 code = 33725) CALC BUN/CREAT (test code = 9 RATIO 2235) SODIUM (test code = 2231) 142 MEQ/L POTASSIUM (test code = 2228) 4.4 MEQ/L CHLORIDE (test code = 2215) 101 MEQ/L CARBON DIOXIDE (test code = 26 MEQ/L 2206) CALCIUM (test code = 2209) 10.7 MG/DL PROTEIN, TOTAL (test code = 7.6 G/DL 222) ALBUMIN (test code = 2201) 5.2 G/DL CALC GLOBULIN (test code = 2.4 G/DL 2240) CALC A/G RATIO (test code = 2.2 RATIO 2234) BILIRUBIN, TOTAL (test code = 0.5 MG/DL 220) ALKALINE PHOSPHATASE (test 118 U/L code = 2204) AST (test code = 2218) 31 U/L ALT (test code = 2219) 61 U/L COMPREHENSIVE METABOLIC PANEL [ADDED]2022-05-26 00:00:00 Test Item Value Reference Range Interpretation Comments GLUCOSE (test code = 2217) 109 MG/DL BUN (test code = 2208) 9 MG/DL CREATININE (test code = 2214) 0.99 MG/DL eGFR (2020 CKD-EPI) (test 103 ML/MIN/1.73 code = 96414) CALC BUN/CREAT (test code = 9 RATIO 2235) SODIUM (test code = 2231) 142 MEQ/L POTASSIUM (test code = 2228) 4.4 MEQ/L CHLORIDE (test code = 2215) 101 MEQ/L CARBON DIOXIDE (test code = 26 MEQ/L 2205) CALCIUM (test code = 2209) 10.7 MG/DL PROTEIN, TOTAL (test code = 7.6 G/DL 2228) ALBUMIN (test code = 2201) 5.2 G/DL CALC GLOBULIN (test code = 2.4 G/DL 2239) CALC A/G RATIO (test code = 2.2 RATIO 2233) BILIRUBIN, TOTAL (test code = 0.5 MG/DL 2206) ALKALINE PHOSPHATASE (test 118 U/L code = 2204) AST (test code = 2218) 31 U/L ALT (test code = 2219) 61 U/L LIPID PANEL [ADDED]2022-05-26 00:00:00 Test Item Value Reference Range Interpretation Comments CHOLESTEROL (test code = 2210) 197 MG/DL TRIGLYCERIDES (test code = 2232) 211 MG/DL HDL CHOLESTEROL (test code = 2220) 30 MG/DL CALC LDL CHOL (test code = 2237) 132 MG/DL RISK RATIO LDL/HDL (test code = 4.40 RATIO 2238) LIPID PANEL [ADDED]2022-05-26 00:00:00 Test Item Value Reference Range Interpretation Comments CHOLESTEROL (test code = 2210) 197 MG/DL TRIGLYCERIDES (test code = 2232) 211 MG/DL HDL CHOLESTEROL (test code = 2220) 30 MG/DL CALC LDL CHOL (test code = 2237) 132 MG/DL RISK RATIO LDL/HDL (test code = 4.40 RATIO 2238) CKMB [ADDED]2022-05-26 00:00:00 Test Item Value Reference Range Interpretation Comments CKMB (test code = 89115) <1.0 NG/ML CKMB [ADDED]2022-05-26 00:00:00 Test Item Value Reference Range Interpretation Comments CKMB (test code = 73973) <1.0 NG/ML TROPONIN T [ADDED]2022-05-26 00:00:00 Test Item Value Reference Range Interpretation Comments TROPONIN T (test code = 4017) <6 NG/L TROPONIN T [ADDED]2022-05-26 00:00:00 Test Item Value Reference Range Interpretation Comments TROPONIN T (test code = 4017) <6 NG/L
[2023-04-03 21:30] LABS: Absolute Lymphocytes (CBC) 2.2 K/uL (0.7-4.9); Hematocrit 42.4 % (39.6-49.0); Lymphocytes % 27.7 % (15.3-44.8); MCV 90.1 fL (80-100); MPV 10.6 fL (7.6-11.3); RBC Red Blood Cell Count 4.71 M/uL (4.33-5.43)
[2023-04-03 21:44] LABS: BUN Blood Urea Nitrogen 10 mg/dL (7-18); Bicarbonate 33 mEq/L (21-32); Glomerular Filtration Rate 106 ml/min (=/>90); Glucose Level 90 mg/dL (74-106); Potassium 3.4 mEq/L (3.5-5.1); Sodium Level 138 mEq/L (136-145)
[2023-04-03 21:48] LABS: Troponin High Sensitivity < 3.0 pg/mL (<58.9)
--- NOTE | 2023-04-03 22:19 | RAD REPORT ---
[facility]05 [facility] CLINICAL HISTORY: CHEST PAIN COMPARISON: Chest Single View dated 10/21/2022 TECHNIQUE: Portable AP view of the chest. FINDINGS: The lungs are clear. No pneumothorax or effusion. The cardiomediastinal contours are unre markable. IMPRESSION: No acute cardiopulmonary process.
[2023-04-03 22:20] LABS: Barbiturates NEGATIVE (NEGATIVE); Benzodiazepines NEGATIVE (NEGATIVE); Cocaine NEGATIVE (NEGATIVE); METHAMPHETAM NEGATIVE (NEGATIVE); Methadone NEGATIVE (NEGATIVE); Opiates NEGATIVE (NEGATIVE); Phencyclidine NEGATIVE (NEGATIVE); THC Cannibis NEGATIVE (NEGATIVE)
[2023-04-03] MEDS ORDERED: PANTOPRAZOLE 40 MG INJ ONE (23:04)
[2023-04-03] MEDS ORDERED: KETOROLAC 30 MG/ML INJ ONE (23:04)
[2023-04-03] MEDS ORDERED: NA CHLORIDE 0.9% 1,000 ML ONE (23:04)
--- NOTE | 2023-04-04 01:43 | EDPHYS ---
Physician Documentation [facility] Name: Santiago Cotter Age: 37 yrs Sex: Male : 1985 Arrival Date: 04/03/2023 Time: 20:37 Bed 3 Private MD: ED Physician Jad Olivo HPI: 04/03 21:05 This 37 yrs old Male presents to ER via Ambulatory with complaints of Chest Pain. cp 21:05 The patient or guardian reports chest pain that is located primarily in the anterior cp chest wall, left. The pain does not radiate. 21:05 Associated signs and symptoms: Pertinent negatives: abdominal pain, cough, diaphoresis, cp dizziness, lower extremity pain, lower extremity swelling, palpitations, shortness of breath, syncope, vomiting. The chest pain is described as sharp. Duration: The patient or guardian reports multiple episodes, that are intermittent. 21:05 Patient reports onset of chest pain 2-3 days ago, has been intermittent. Pain returned cp 2 hours ago. Thought pain was due to heartburn, but noticed left arm pain also. Historical: - Allergies: 20:49 No Known Allergies; jj7 - PMHx: 20:49 Gastroesophageal reflux disease; jj7 - PSHx: 20:49 None; jj7 - Immunization history:: Adult Immunizations up to date, Client reports receiving the 2nd dose of the Covid vaccine. - Social history:: Smoking status: Patient denies any tobacco usage or history of. Patient/guardian denies using alcohol, street drugs. ROS: 21:10 Constitutional: Negative for body aches, chills, fever, poor PO intake. cp 21:10 Eyes: Negative for injury, pain, redness, and discharge. cp 21:10 ENT: Negative for drainage from ear(s), ear pain, sore throat, difficulty swallowing, difficulty handling secretions. 21:10 Cardiovascular: Positive for chest pain, Negative for edema, palpitations. 21:10 Respiratory: Negative for cough, shortness of breath, wheezing. 21:10 Abdomen/GI: Negative for abdominal pain, nausea, vomiting, and diarrhea. 21:10 Back: Negative for pain at rest, pain with movement. 21:10 Neuro: Negative for altered mental status, dizziness, headache, numbness, weakness. 21:10 All other systems are negative. Exam: 21:15 Constitutional: The patient appears in no acute distress, alert, awake, cp non-diaphoretic, non-toxic, well developed, well nourished. 21:15 Head/Face: Normocephalic, atraumatic. cp 21:15 Eyes: Periorbital structures: appear normal, Conjunctiva: normal, no exudate, no injection, Sclera: no appreciated abnormality, Lids and lashes: appear normal, bilaterally. 21:15 ENT: External ear(s): are unremarkable, Nose: is normal, Mouth: Lips: moist, Oral mucosa: pink and intact, moist, Posterior pharynx: is normal, airway is patent, no erythema, no exudate. 21:15 Chest/axilla: Inspection: normal, Palpation: is normal, no crepitus, no tenderness. 21:15 Cardiovascular: Rate: normal, Rhythm: regular, Heart sounds: murmur, not appreciated, JVD: is not appreciated. 21:15 Respiratory: the patient does not display signs of respiratory distress, Respirations: normal, no use of accessory muscles, no retractions, labored breathing, is not present, Breath sounds: are clear throughout, no decreased breath sounds, no stridor, no wheezing. 21:15 Abdomen/GI: Inspection: abdomen appears normal, Bowel sounds: active, all quadrants, Palpation: abdomen is soft and non-tender, in all quadrants. 21:15 Back: pain, is absent, ROM is normal. 21:15 Neuro: Orientation: to person, place \T\ time. Mentation: is normal, Cerebellar function: is grossly normal, Motor: moves all fours, strength is normal, Sensation: is normal. Vital Signs: 20:43 BP 133 / 83; Pulse 77; Resp 18; Temp 99.2; Pulse Ox 100% ; Weight 78.93 kg; Height 6 jj7 ft. 3 in. ; Pain 2/10; 21:06 BP 133 / 81; Pulse 70; Resp 17 S; Pulse Ox 99% on R/A; lg3 22:05 BP 125 / 83; Pulse 69; Resp 16 S; Pulse Ox 100% on R/A; lg3 23:09 BP 115 / 79; Pulse 68; Resp 15; Pulse Ox 98% on R/A; lg3 06/08 00:11 BP 120 / 78; Pulse 62; Resp 16 S; Pulse Ox 98% on R/A; lg3 01:00 BP 113 / 84; Pulse 58; Resp 17; Pulse Ox 99% ; jj7 02:07 BP 124 / 83; Pulse 69; Resp 17; Pulse Ox 100% ; Pain 0/10; jj7 04/03 20:43 Body Mass Index 21.75 (78.93 kg, 190.5 cm) 7 04/03 20:43 Pain Scale: Adult jj7 02:07 Pain Scale: Adult jj7 MDM: 04/03 21:16 Patient medically screened. 04/04 01:42 Data reviewed: vital signs, nurses notes, lab test result(s), EKG, radiologic studies, cp plain films. 01:42 Differential diagnosis: abnormal EKG, acute myocardial infarction, pancreatitis, cp pericarditis, pleurisy, pneumonia, pneumothorax, pulmonary embolus, thoracic aortic disection. Consideration of Admission/Observation Escalation of care including admission/observation considered. I considered the following discharge prescriptions or medication management in the emergency department Medications were administered in the Emergency Department. See MAR. Test considered but Not performed: CT: chest. 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 Response to treatment: the patient's symptoms have markedly improved after treatment. Special discussion: Based on the patient's history, exam, and Dx evaluation, there is no indication for emergent intervention or inpatient Tx. It is understood by the patient/guardian that if the Sx's persist or worsen they need to return immediately for re-evaluation. 04/03 20:58 Order name: Basic Metabolic Panel; Complete Time: 22:27 3 04/03 22:27 Interpretation: Normal except: K 3.4; CO2 33. 04/03 20:58 Order name: CBC with Diff; Complete Time: 22:27 kd3 04/03 20:58 Order name: Troponin HS; Complete Time: 22:27 3 04/03 21:31 Order name: UDS; Complete Time: 22:27 04/03 22:35 Order name: LAB Add On cp 04/03 22:58 Order name: D-Dimer; Complete Time: 23:23 EDMS 04/03 23:23 Interpretation: Reviewed. cp 04/04 00:03 Order name: Troponin HS; Complete Time: 01:42 cp 04/04 01:42 Interpretation: Reviewed. cp 04/03 20:58 Order name: XRAY Chest (1 view); Complete Time: 22:27 3 04/03 20:58 Order name: EKG; Complete Time: 20:59 kd3 04/03 20:58 Order name: Cardiac monitoring; Complete Time: 21:06 3 04/03 20:58 Order name: EKG - Nurse/Tech; Complete Time: 21:00 [facility] 04/03 20:58 Order name: IV Saline Lock; Complete Time: 21:00 3 04/03 20:58 Order name: Labs collected and sent; Complete Time: 21:00 [facility] 04/03 20:58 Order name: O2 Per Protocol; Complete Time: 21:06 [facility] 04/03 20:58 Order name: O2 Sat Monitoring; Complete Time: 21:06 3 04/04 00:50 Order name: EKG - Nurse/Tech; Complete Time: 01:03 cp Administered Medications: 04/03 23:03 Drug: Ketorolac IVP 15 mg Route: IVP; Site: right antecubital; lg3 23:30 Follow up: Response: No adverse reaction jj7 23:03 Drug: NS 0.9% IV 1000 ml Route: IV; Rate: 1 bolus; Site: right antecubital; 3 04/04 00:07 Follow up: IV Status: Completed infusion jj7 04/03 23:03 Drug: Pantoprazole IVP 40 mg Route: IVP; Site: right antecubital; 3 04/04 01:00 Follow up: Response: No adverse reaction jj7 02:10 Drug: Potassium PO Effervescent Tablet 25 mEq Route: PO; jj7 02:10 Follow up: Response: No adverse reaction jj7 Disposition Summary: 04/04/23 01:43 Discharge Ordered Location: Home cp Problem: new cp Symptoms: have improved cp Condition: Stable cp Diagnosis - Chest pain, unspecified cp Followup: cp - With: Osbaldo Zuleta MD - When: 2 - 3 days - Reason: Recheck today's complaints Discharge Instructions: - Discharge Summary Sheet cp - Nonspecific Chest Pain, Adult cp - Aspirin and Your Heart cp Forms: - Medication Reconciliation Form cp - Thank You Letter cp - Antibiotic Education cp - Prescription Opioid Use cp Prescriptions: - Protonix 40 mg Oral Tablet - take 1 tablet by ORAL route once daily; 30 tablet; Refills: 0, Product cp Selection Permitted Signatures: Dispatcher [employer] EDMS Pawel Grissom PA PA cp Jahaira Rivera RN RN lg3 Sun Bowman RN RN kd3 Navid Gates RN RN jj7 Corrections: (The following items were deleted from the chart) 04/05 02:12 04/03 21:05 The chest pain is described as sharp, cp cp
--- NOTE | 2023-04-04 01:43 | ER ---
Nurse's Notes [facility] Name: Santiago Cotter Age: 37 yrs Sex: Male : 1985 Arrival Date: 04/03/2023 Time: 20:37 Bed 3 Private MD: Diagnosis: Chest pain, unspecified Presentation: 04/03 20:43 Chief complaint: Patient states: CP X2 HRS. HAS HX OF GERD AND STATES HE GETS CP OFTEN jj7 BUT THIS TIME FEELS DIFFERENT. STATES HE HAS SWEATING ANF LEFT ARM PAIN TODAY. Coronavirus screen: At this time, the client does not indicate any symptoms associated with coronavirus-19. Ebola Screen: No symptoms or risks identified at this time. Initial Sepsis Screen: Does the patient meet any 2 criteria? No. Patient's initial sepsis screen is negative. Does the patient have a suspected source of infection? No. Patient's initial sepsis screen is negative. Risk Assessment: Do you want to hurt yourself or someone else? Patient reports no desire to harm self or others. Onset of symptoms was April 03, 2023. 20:43 Method Of Arrival: Ambulatory [facility] 20:43 Acuity: [place] 3 jj7 Triage Assessment: 20:49 General: Appears in no apparent distress. comfortable, Behavior is calm, cooperative, jj7 appropriate for age. Pain: Complains of pain in anterior aspect of left upper chest and left breast Pain currently is 2 out of 10 on a pain scale. Cardiovascular: Reports chest pain. Historical: - Allergies: 20:49 No Known Allergies; jj7 - PMHx: 20:49 Gastroesophageal reflux disease; jj7 - PSHx: 20:49 None; jj7 - Immunization history:: Adult Immunizations up to date, Client reports receiving the 2nd dose of the Covid vaccine. - Social history:: Smoking status: Patient denies any tobacco usage or history of. Patient/guardian denies using alcohol, street drugs. Screenin:06 [facility] ED Fall Risk Assessment (Adult) History of falling in the last 3 months, lg3 including since admission No falls in past 3 months (0 pts). Abuse screen: Denies threats or abuse. Denies injuries from another. Nutritional screening: No deficits noted. Tuberculosis screening: No symptoms or risk factors identified. Assessment: 21:06 General: Appears in no apparent distress. comfortable, Behavior is calm, cooperative. lg3 Pain: Complains of pain in chest Pain radiates to left breast Pain began 2-3 days ago. Neuro: No deficits noted. Locke Agitation-Sedation Scale (RASS): 0 - Alert and Calm Level of Consciousness is awake, alert, obeys commands, Oriented to person, place, time, situation. Cardiovascular: No deficits noted. Capillary refill < 3 seconds Clubbing of nail beds is absent JVD is absent Patient's skin is warm and dry. Chest pain is described as mild, episodes are intermittent. Respiratory: No deficits noted. Airway is patent Respiratory effort is even, unlabored, Respiratory pattern is regular, symmetrical. GI: No deficits noted. No signs and/or symptoms were reported involving the gastrointestinal system. : No deficits noted. No signs and/or symptoms were reported regarding the genitourinary system. EENT: No deficits noted. No signs and/or symptoms were reported regarding the EENT system. Derm: No deficits noted. No signs and/or symptoms reported regarding the dermatologic system. Skin is intact, is healthy with good turgor, Skin is dry, Skin is normal, Skin temperature is warm. Musculoskeletal: No deficits noted. No signs and/or symptoms reported regarding the musculoskeletal system. Circulation, motion, and sensation intact. Range of motion: intact in all extremities. 22:05 Reassessment: Patient appears in no apparent distress at this time. No changes from lg3 previously documented assessment. Patient and/or family updated on plan of care and expected duration. Pain level reassessed. Patient is alert, oriented x 3, equal unlabored respirations, skin warm/dry/pink. 04/04 00:11 Reassessment: Patient appears in no apparent distress at this time. No changes from lg3 previously documented assessment. Patient and/or family updated on plan of care and expected duration. Pain level reassessed. Patient is alert, oriented x 3, equal unlabored respirations, skin warm/dry/pink. Patient states symptoms have improved. Vital Signs: 04/03 20:43 BP 133 / 83; Pulse 77; Resp 18; Temp 99.2; Pulse Ox 100% ; Weight 78.93 kg; Height 6 jj7 ft. 3 in. ; Pain 2/10; 21:06 BP 133 / 81; Pulse 70; Resp 17 S; Pulse Ox 99% on R/A; lg3 22:05 BP 125 / 83; Pulse 69; Resp 16 S; Pulse Ox 100% on R/A; lg3 23:09 BP 115 / 79; Pulse 68; Resp 15; Pulse Ox 98% on R/A; 3 06/08 00:11 BP 120 / 78; Pulse 62; Resp 16 S; Pulse Ox 98% on R/A; lg3 01:00 BP 113 / 84; Pulse 58; Resp 17; Pulse Ox 99% ; j7 02:07 BP 124 / 83; Pulse 69; Resp 17; Pulse Ox 100% ; Pain 0/10; j7 04/03 20:43 Body Mass Index 21.75 (78.93 kg, 190.5 cm) [facility] 04/03 20:43 Pain Scale: Adult [facility] 02:07 Pain Scale: Adult [facility] ED Course: 04/03 20:42 Patient arrived in ED. ja2 20:43 Pawel Grissom PA is PHCP. cp 20:43 Jad Olivo MD is Attending Physician. cp 20:49 Triage completed. j7 20:49 Arm band placed on left wrist. j 20:52 EKG completed in triage. Results shown to MD. j7 21:00 Inserted saline lock: 20 gauge in right antecubital area, using aseptic technique. bc6 21:01 Basic Metabolic Panel Sent. 6 21:01 CBC with Diff Sent. 6 21:01 Troponin HS Sent. bc6 21:03 Placed in gown. Bed in low position. Call light in reach. Side rails up X 1. Client mb9 placed on continuous cardiac and pulse oximetry monitoring. NIBP monitoring applied. licensed mortgage loan officer on. 21:03 No provider procedures requiring assistance completed. mb9 21:06 Door closed. Noise minimized. Warm blanket given. lg3 21:06 Patient maintains SpO2 saturation greater than 95% on room air. lg3 22:01 Jahaira Rivera, RN is Primary Nurse. lg3 22:01 UDS Sent. lg3 22:07 XRAY Chest (1 view) In Process Unspecified. EDMS 23:04 LAB Add On Sent. 3 04/04 00:31 Troponin HS Sent. j7 01:42 Osbaldo Zuleta MD is Referral Physician. cp 02:07 IV discontinued, intact, bleeding controlled, No redness/swelling at site. Pressure jj7 dressing applied. Administered Medications: 04/03 23:03 Drug: Ketorolac IVP 15 mg Route: IVP; Site: right antecubital; lg3 23:30 Follow up: Response: No adverse reaction j7 23:03 Drug: NS 0.9% IV 1000 ml Route: IV; Rate: 1 bolus; Site: right antecubital; lg3 04/04 00:07 Follow up: IV Status: Completed infusion jj7 04/03 23:03 Drug: Pantoprazole IVP 40 mg Route: IVP; Site: right antecubital; lg3 04/04 01:00 Follow up: Response: No adverse reaction jj7 02:10 Drug: Potassium PO Effervescent Tablet 25 mEq Route: PO; jj7 02:10 Follow up: Response: No adverse reaction jj7 Medication: 04/03 21:03 VIS not applicable for this client. mb9 Outcome: 04/04 01:43 Discharge ordered by MD. wang 02:07 Discharged to home ambulatory. jj7 02:07 Discharged to 02:07 Condition: improved 02:07 Discharge instructions given to patient. 02:07 Instructed on discharge instructions, medication usage, Demonstrated understanding of instructions, medications. 02:16 Patient left the ED. jj7 Signatures: Dispatcher [employer] EDMS Pawel Grissom PA PA cp Gibson, Lacie, RN RN lg3 Brooke Hamlin Juwairiyah, RN RN jj7 Natalia Shirley RN RN mb9 Dione Roberto [facility]
[2023-04-04] MEDS ORDERED: POTASSIUM 25 MEQ EFFERV TAB ONE (02:09)
[2023-04-04 03:19] VITALS: TEMP 99.2
[2023-04-04 03:26] VITALS: BP 124/83; O2SAT 100
--- NOTE | 2023-04-05 14:50 | EKG ---
Test Date: 2023-04-04 Test Time: 01:00:28 Transition Teacher: NOY MEASUREMENT RESULTS: Intervals: Rate: 61 AL: 174 QRSD: 78 QT: 404 QTc: 406 [place]: P: 38 AL: 174 QRS: 29 T: 42 INTERPRETIVE STATEMENTS: Normal sinus rhythm Normal ECG Compared to ECG 04/03/2023 20:50:54 ST (T wave) deviation no longer present Electronically Signed On 04-05-23 14:44:55 CDT by Satinder Bazan
--- NOTE | 2023-04-05 14:51 | EKG ---
Test Date: 2023-04-03 Test Time: 20:50:54 Senior Pensions Administrator: NOY MEASUREMENT RESULTS: Intervals: Rate: 71 TN: 170 QRSD: 84 QT: 368 QTc: 399 [place]: P: 47 TN: 170 QRS: 33 T: 50 INTERPRETIVE STATEMENTS: Normal sinus rhythm Nonspecific ST abnormality Abnormal ECG Compared to ECG 10/21/2022 21:23:34 ST (T wave) deviation now present Electronically Signed On 04-05-23 14:44:58 CDT by Satinder Bazan
== END 2023-04-04 02:16 | disposition home or self-care (01) ==
LOC: ER 20:37
DX: R07.89 Other chest pain (principal); K21.9 Gastro-esophageal reflux disease without esophagitis
CPT/HCPCS: 96361; 93005 ×2; 85025; 80048; 36415; 85379; 84484 ×2; 80307; 71045; 96375; 96374; 99285; C9113; J7030